=== PATIENT | female | born 1960 | race American Indian/Alaskan Native ===

== ENCOUNTER 2020-05-10 21:44 | Emergency (ER) | payer BC ==
[2020-05-10 21:59] VITALS: BP 157/89
--- NOTE | 2020-05-11 00:26 | Emergency Department Report ---
ED ENT HPI - General Chief complaint: Nosebleed Stated complaint: NOSE BLEED Time Seen by Provider: 05/11/20 00:11 Source: patient Mode of arrival: Ambulatory Limitations: No Limitations - History of Present Illness Initial comments: This is a 60-year-old female with history of hypertension, dyslipidemia who presents with nosebleeding for 1 hour. She was concerned that she had large clots coming from her nose and mouth. she does not remember from what side the bleeding originated. Only history of remote nosebleeding episode years ago. She did not require medical evaluation or treatment at that time. She denies use of antiplatelet agents or anticoagulation. She denies recent illness. No nasal congestion or trauma. Pressure has been applied for the past 1 hour using wooden applicators. MD complaint: epistaxis -: Sudden Location: nose Severity: mild Consistency: now resolved Improves with: none Worsens with: none Context-Epistaxis: other (History of mild epistaxis years ago) - Related Data Previous Rx's Medication Instructions Recorded Last Taken Type cephALEXin [Keflex] 500 mg PO Q8HR 5 Days #15 cap 05/11/20 Unknown Rx Allergies Allergy/AdvReac Type Severity Reaction Status Date / Time amoxicillin Allergy Hives Verified 05/10/20 22:00 ED Dental HPI - General Chief complaint: Nosebleed Stated complaint: NOSE BLEED Time Seen by Provider: 05/11/20 00:11 Source: patient Mode of arrival: Ambulatory Limitations: No Limitations - Related Data Previous Rx's Medication Instructions Recorded Last Taken Type cephALEXin [Keflex] 500 mg PO Q8HR 5 Days #15 cap 05/11/20 Unknown Rx Allergies Allergy/AdvReac Type Severity Reaction Status Date / Time amoxicillin Allergy Hives Verified 05/10/20 22:00 ED Review of Systems ROS: Stated complaint: NOSE BLEED Other details as noted in HPI Constitutional: denies: fever, malaise ENT: epistaxis. denies: ear pain, throat pain, congestion Respiratory: denies: cough, shortness of breath Cardiovascular: denies: chest pain Gastrointestinal: denies: abdominal pain, nausea, vomiting ED Past Medical Hx - Past Medical History Previous Medical History?: Yes Hx Hypertension: Yes Additional medical history: High Cholesterol - Surgical History Past Surgical History?: Yes Additional Surgical History: Neck tumor removal - Social History Smoking Status: Never Smoker Substance Use Type: None - Medications Home Medications: Home Medications Medication Instructions Recorded Confirmed Last Taken Type cephALEXin [Keflex] 500 mg PO Q8HR 5 Days #15 cap 05/11/20 Unknown Rx ED Physical Exam - General Limitations: No Limitations General appearance: alert, in no apparent distress - Head Head exam: Present: atraumatic, normocephalic - Eye Eye exam: Present: normal appearance. Absent: scleral icterus, conjunctival injection - ENT ENT exam: Present: normal orophraynx, mucous membranes moist - Neck Neck exam: Present: normal inspection - Respiratory Respiratory exam: Absent: respiratory distress - GI/Abdominal GI/Abdominal exam: Absent: distended, tenderness, guarding, rebound - Extremities Exam Extremities exam: Present: normal inspection - Neurological Exam Neurological exam: Present: alert, oriented X3 - Psychiatric Psychiatric exam: Present: normal affect, normal mood - Skin Skin exam: Present: warm, dry, intact, normal color. Absent: rash - Other Other exam information: Nasal exam: Dried blood surrounding the left nare, no blood at the right nare no active bleeding ED Course Vital Signs 05/10/20 05/10/20 21:54 21:58 Temperature 98 F Pulse Rate 84 Respiratory 16 Rate Blood Pressure 157/89 O2 Sat by Pulse 99 Oximetry - Procedure Description Procedures done: Left nare Rhino rocket insertion. I used normal saline to soften the gel-like material. I inserted a 4.5 cm length Rhino rocket into the left nare. I used a syringe to inflate the balloon with air. ED Medical Decision Making - Medical Decision Making Anterior epistaxis: Rhino Rocket inserted into the left nare for patient's comfort although epistaxis had ceased. Patient prescribed Keflex. She was given Afrin spray to use if bleeding returns. She understands to return on Tuesday to have Rhino Rocket removed. Critical care attestation.: If time is entered above; I have spent that time in minutes in the direct care of this critically ill patient, excluding procedure time. ED Disposition Clinical Impression: Anterior epistaxis Disposition: - TO HOME OR SELFCARE Is pt being admited?: No Does the pt Need Aspirin: No Condition: Stable Instructions: Epistaxis (ED) Additional Instructions: Please return Tuesday morning to have the Rhino Rocket/nasal packing removed. Prescriptions: cephALEXin [Keflex] 500 mg PO Q8HR 5 Days #15 cap
[2020-05-11] MEDS ORDERED: OXYMETAZOLINE 0.05% NASAL SPRAY NS ONE (00:27)
[2020-05-11] MEDS ORDERED: cephALEXin 500 MG CAP PO ONE (00:27)
== END 2020-05-11 01:08 | disposition home or self-care (01) ==
LOC: ED 21:44
DX: R04.0 Epistaxis (principal); I10 Essential (primary) hypertension; Z98.890 Other specified postprocedural states; Z79.899 Other long term (current) drug therapy; Z88.1 Allergy status to other antibiotic agents
CPT/HCPCS: 99282